=== PATIENT | female | born 1960 | race Caucasian/White ===

== ENCOUNTER 2019-02-22 10:59 | Emergency (ER) | payer SELFPAY ==
--- NOTE | 2019-02-22 11:03 | ED Physician Documentation ---
General Adult - HISTORIAN Historian: patient - HPI Stated Complaint: mild headache and forgetting her location Chief Complaint: General Adult Onset: hours (3) Timing: still present Severity: mild Further Comments: yes (She states she has a history of migraines and this am she woke with a headache and she did take tylenol migraine for the headache. She no renzo she then went to work and as she was driving she could not remember the town name she was going to and then she could not remember how to get here to the hospital. She has no other deficts she can recall. No other complaints) - ROS CONST: no problems EYES/ENT: none NEURO/PSYCH: headache - PAST HX Past History: none Other History: none Immunizations: UTD Allergies/Adverse Reactions: Allergies Allergy/AdvReac Type Severity Reaction Status Date / Time No Known Allergies Allergy Verified 02/22/19 11:40 Home Medications: Ambulatory Orders Medication Instructions Recorded NK 02/22/19 - SOCIAL HX Smoking History: non-smoker Alcohol Use: none Drug Use: none - FAMILY HX Family History: No - REVIEWED ASSESSMENTS Nursing Assessment Reviewed: Yes Vitals Reviewed: Yes Progress - Progress Progress: 1306: Discussed results and plan with pt and family they are agreeable DG 1310: discussion with pt due to she says she feels all the way better and she is concerned if the medication she took made her feel foggy ED Results Lab/Radiology - Radiology Radiology Impressions: Examination: CT head without contrast History: CONFUSION Comparison exam: None available Technique: Noncontrast head CT protocol. Findings: Ventricles and sulci are consistent for patient age. Cerebrocerebellar parenchyma demonstrates periventricular low attenuation consistent with small vessel disease. No evidence for parenchymal hemorrhage. No evidence for mass or mass effect. No midline shift. No extra axial fluid collections. Partial visualization of the paranasal sinuses, mastoid air cells, orbits, skull and scalp without gross irregularity. Impression: Age related changes. No acute parenchymal process. No hemorrhage. Electronically signed on Feb 22, 2019 11:43:14 AM CDT by: Wes Blanc General Adult Physical Exam - PHYSICAL EXAM GENERAL APPEARANCE: no distress EENT: eye inspection normal, ENT inspection normal, pharynx normal, no signs of dehydration, OFE NECK: normal inspection RESPIRATORY: no resp distress, chest non-tender, breath sounds normal CVS: reg rate & rhythm, heart sounds normal ABDOMEN: soft, normal bowel sounds, no distension BACK: normal inspection, no CVA tenderness SKIN: warm/dry, normal color EXTREMITIES: non-tender, normal range of motion, no evidence of injury, no edema NEURO: oriented X3, CN's nml as tested, motor nml, sensation nml, mood/affect nml, cognition normal Discharge Clincal Impression: Change in mental status Qualifiers: Altered mental status type: unspecified Qualified Code(s): R41.82 - Altered mental status, unspecified Referrals: Primary Doctor,No [Primary Care Provider] - 2 Days Comments: 1. Continue current meds 2. Follow up with PCP in 2 days 3. Rest 4. Return to ER for any increasing concerns Condition: Stable Disposition: 01 HOME, SELF-CARE Decision to Admit: NO Date of Decison to Admit: 02/22/19 Decision Time: 13:11
[2019-02-22 11:24] LABS: BASOPHILS % 0.5 % (0.0-1.5); NEUTROPHILS # 3.7 # k/uL (1.4-7.7)
[2019-02-22 11:38] LABS: eGFR (Non-African) > 60
[2019-02-22 11:39] VITALS: BP 173/93
--- NOTE | 2019-02-22 12:34 | Diagnostic Imaging Report ---
AUSTEN MADDEN [facility] [id number] [facility] [address] [place], [place]. [address] Report Submission Date: Feb 22, 2019 11:43:14 AM CDT Patient Study Name: NOAM ARMENTA Date: Feb 22, 2019 11:28:09 AM CDT Modality Type: CT\SR Gender: F Description: CT BRAIN W/O CONTRAST : 58 Institution: [facility] Physician: AUSTEN MADDEN Examination: CT head without contrast History: CONFUSION Comparison exam: None available Technique: Noncontrast head CT protocol. Findings: Ventricles and sulci are consistent for patient age. Cerebrocerebellar parenchyma demonstrates periventricular low attenuation consistent with small vessel disease. No evidence for parenchymal hemorrhage. No evidence for mass or mass effect. No midline shift. No extra axial fluid collections. Partial visualization of the paranasal sinuses, mastoid air cells, orbits, skull and scalp without gross irregularity. Impression: Age related changes. No acute parenchymal process. No hemorrhage. Electronically signed on Feb 22, 2019 11:43:14 AM CDT by: Wes YEUNG
[2019-02-22 17:36] LABS: APPEARANCE,URINE CLEAR (CLEAR); COLOR,URINE YELLOW (YELLOW); OCCULT BLOOD,URINE NEGATIVE (NEGATIVE); PH URINE 7.5 (5.0 - 8.0); UROBILINOGEN URINE 0.2 Eu (0.2-1.0)
== END 2019-02-22 13:10 | disposition home or self-care (01) ==
LOC: ED 10:59
DX: R41.82 Altered mental status, unspecified (principal); R51 Headache
CPT/HCPCS: 70450; 80053; 80320; 81002; 85025; 99282; G0480; S1016